=== PATIENT | male | born 1930 | race American Indian/Alaskan Native ===

== ENCOUNTER 2019-04-25 13:50 | Emergency (ER) | payer OTHER ==
[~2019-04-25] VITALS: Ht 180.3 cm; Wt 99.8 kg
[2019-04-25 13:50] VITALS: BP_SYST 146
--- NOTE | 2019-04-25 13:50 | NUR ---
Accucheck 145. Dr. Cassidy notified.
--- NOTE | 2019-04-25 13:50 | NUR ---
ER Dr. Cassidy at bedside examining patient.
--- NOTE | 2019-04-25 13:50 | NUR ---
Pt taken to radiology for CT head via conrad.
--- NOTE | 2019-04-25 13:50 | NUR ---
Patient arrived ALS confused s/p possible seizure per EMS report. Approximately 1300, patient was found diaphoretic, passed out for 5 minutes and appeared postictal. Upon arrival, patient had slurred speech, unable to follow commands, weakness to the right side. Dr. Cassidy at bedside. Blood sugar 145. Patient placed on 2L oxygen via nasal cannula.
--- NOTE | 2019-04-25 13:50 | NUR ---
Placed in room 01 . Placed on classroom monitor, blood pressure machine and pulse oximeter. To gown for exam. Side rails up.
--- NOTE | 2019-04-25 13:50 | NUR ---
Carmella vega in EDM - 04/25/19 at 1356 by [email or web address] Pt taken to radiology via conrad in stable condition.
--- NOTE | 2019-04-25 13:50 | NUR ---
Code Stroke initiated
--- NOTE | 2019-04-25 13:56 | NUR ---
Carmella vega in ED - 04/25/19 at 1356 by [email or web address] Pt taken to Radiology via conrad for CT scan head.
--- NOTE | 2019-04-25 14:05 | NUR ---
RECEIVED CALL FROM DR REAL AND CT WAS NEGATIVE FOR BLEED
--- NOTE | 2019-04-25 14:08 | NUR ---
Radiology at bedside for CXR
[2019-04-25] MEDS ORDERED: ASPIRIN 81 MG TAB.CHEW PO ONE (14:15)
--- NOTE | 2019-04-25 14:27 | NUR ---
Aspirin PO canceled per Dr. Cassidy.
[2019-04-25] MEDS ORDERED: ALTEPLASE 100 MG VIAL IV ONE ×2 (14:30)
[2019-04-25 14:35] LABS: BASOPHILS # (AUTO) 0.2 K/uL (0.0-0.2); BASOPHILS % (AUTO) 3.9 % (0.0-2.0); EOSINOPHILS % (AUTO) 0.7 % (0.0-4.0); HEMATOCRIT 38.2 % (36-54); HEMOGLOBIN 13.2 g/dL (14.0-18.0); LYMPHOCYTES # (AUTO) 0.6 K/uL (1.0-5.5); LYMPHOCYTES % (AUTO) 12.5 % (20.5-51.5); MEAN CORPUSCULAR HEMOGLOBIN 35 pg (27-31); MEAN CORPUSCULAR HGB CONC 35 % (32-36); MEAN CORPUSCULAR VOLUME 101 fL (79.0-98.0); MONOCYTES # (AUTO) 0.3 K/uL (0.0-1.0); MONOCYTES % (AUTO) 6.2 % (1.7-9.3); NEUTROPHILS # (AUTO) 3.4 K/uL (1.8-7.7); NEUTROPHILS % (AUTO) 76.7 % (40.0-70.0); PLATELET COUNT (AUTO) 160 K/uL (130-430); RED BLOOD CELL COUNT(AUTO) 3.78 MIL/uL (4.2-6.2); RED CELL DISTRIBUTION WIDTH 13.3 % (9.0-15.0); WHITE BLOOD COUNT (AUTO) 4.5 K/uL (4.8-10.8)
[2019-04-25 14:39] LABS: ANION GAP 6 (5-15); CALCIUM 8.3 mg/dL (8.4-11.0); CHLORIDE 100 mmol/L (98-107); CREATININE 0.88 mg/dL (0.55-1.30); GLUCOSE 139 mg/dL (70-99); POTASSIUM 3.9 mmol/L (3.5-5.1); SODIUM SERUM 134 mmol/L (136-145); UREA NITROGEN, BLOOD 11 mg/dL (8-21)
[2019-04-25 14:43] LABS: ALANINE AMINOTRANSFERASE 43 U/L (12-78); ALBUMIN 3.4 g/dL (3.4-4.8); ASPARTATE AMINOTRANSFERASE 27 U/L (10-37); TOTAL BILIRUBIN 0.8 mg/dL (0.0-1.0)
[2019-04-25] MEDS ORDERED: ALTEPLASE 100 MG IV ONE (14:50)
--- NOTE | 2019-04-25 15:42 | NUR ---
Report given to [facility] THERESA Quinonez. Patient transported.
--- NOTE | 2019-04-25 15:42 | NUR ---
Patient to be transferred to [facility]. Is being transferred due to higher level of care. Receiving facility has accepting physician and available space. ER physician has signed transfer form. Patient or responsible alliance party has agreed to transfer and signed form. Patient belongings inventoried and will be sent with patient. Copy of nursing notes, lab reports, EKG, Physicians Orders and X-rays to be sent with patient. Report called to [facility] at receiving facility. Receiving physician is Dr. Roche. [facility] ambulance service has been called for transfer. ETA is 1530.
[2019-04-25 15:48] VITALS: BP_SYST 153
== END 2019-04-25 15:42 | disposition short-term general hospital (02) ==
LOC: SED 13:50
DX: I63.9 Cerebral infarction, unspecified (principal); G81.94 Hemiplegia, unspecified affecting left nondominant side; I10 Essential (primary) hypertension
CPT/HCPCS: 36415; 37195; 70450; 71045; 80053; 83605; 84484; 85025; 85610; 85730; 87040; 93005; 99291; J2997